=== PATIENT | male | born 1975 | race Caucasian/White ===

== ENCOUNTER 2017-08-24 08:15 | Day surgery (SDC) | payer BC, OTHER ==
[2017-08-24 09:19] LABS: PROTHROMBIN TIME 13.7 SEC (11.4-15.4)
[2017-08-24 09:20] LABS: PARTIAL THROMBOPLASTIN TIME 33.6 SEC (23.5-35.8)
--- NOTE | 2017-08-24 12:34 | RADIOLOGY REPORT (SQ) ---
EXAM DESCRIPTION: MYELOGRAM LUMBAR; CT LUMBAR SPINE WITH COMPLETED DATE/TIME: 08/24/2017 10:44 am; 08/24/2017 10:50 am REASON FOR STUDY: OTHER INVERTEBRAL DISC DEG LUMBAR REGION; OTHER INTERVETRAL DISC DEGENERATION LUMB AR REGION M51.36 OTHER INTERVERTEBRAL DISC DEGENERATION, LUMBAR REGION COMPARISON: None. FLUOROSCOPY TIME: 1 minute TECHNIQUE: Fluoroscopic guided lumbar myelogram. LIMITATIONS: None. PROCEDURE: See the technique paragraph TECHNIQUE: After written consent and assessment were obtained, the patient was brought into the fluo roscopy room and placed prone on the table. The patient's lower back was prepped in a sterile fashio n and an entry site was selected under live fluoroscopic guidance. The entry site was anesthetized wi th 7 mL of 1% lidocaine. The 22 gauge spinal needle was advanced through the skin and into the thecal sac at the left paracentral L2-3 level Contrast was injected into the thecal sac. Following the pro cedure the needle was removed and a sterile bandage was placed of the site. CONTRAST: 12 mL Isovue M 200. IMAGES ACQUIRED: Multiple prone oblique, semi-erect oblique, upright oblique, and lateral flexion and extension images of the lumbar spine to prone cross-table lumbar spine radiographs. After performing lumbar myelogram, axial images were acquired through the lumbar spine without intrav enous contrast. Images reviewed with lung, soft tissue and bone windows. Reconstructed coronal and sagittal MPR images reviewed. All images stored on PACS. All CT scanners at this facility use dose modulation, iterative reconstruction, and/or weight based d osing when appropriate to reduce radiation dose to as low as reasonably achievable (ALARA). [facility]: Dose Right [facility]: CareDose [facility]: Dose Right [facility]: Teradose 4D [facility]: [place] FINDINGS: At fluoroscopy, there is truncation of filling of the proximal left L5 nerve root as robbie red to the right. Grade 1 anterolisthesis of L5 over S1 is present, stable between flexion and exten catracho images. Old lower lumbar fusion with bilateral laminectomy and transpedicular screws with dorsa l fixation plates at L5-S1. Radiopaque disc spacer is present. SEGMENTATION: Normal. No transitional anatomy. ALIGNMENT: Grade 1 25% anterolisthesis of L5 over S1, stable between upright flexion/ extension image s and prone cross-table film, supine CT images VERTEBRAL BODIES: No fractures. No dislocation. No acute findings. HARDWARE: Post fusion at L5-S1 with bilateral transpedicular screws and dorsal fixation plates. No s crew fracture is identified. Disc space prosthesis at the L5-S1 level with adjacent vertebral body e ndplate sclerosis DISCS: L1-L2: No significant protrusions. No significant stenosis. L2-L3: No significant protrusions. No significant stenosis. L3-L4: No significant protrusions. No significant stenosis. L4-L5: Diffuse posterior disc bulging is present along with mild bilateral facet and ligament hypertr ophy. Mild bilateral foraminal narrowing without exiting L4 nerve root impingement L5-S1: Post fusion, without fixed grade 1 anterolisthesis of L5 over S1. There is ligamentum flavum calcification/ ossification and disc bulging at L5-S1, with mild flattening of the thecal sac at the takeoff of the left L5 nerve root from the lateral recess. There is decreased filling of the left pr oximal L5 nerve root as it exits the thecal sac as compared to the right. This is best shown on axia l image 72 and coronal image 23. There is moderate bilateral foraminal narrowing with some partial e ffacement of fat around the exiting L5 nerve roots bilaterally PEDICLES, TRANSVERSE PROCESSES: No fractures. No dislocation. No acute findings. FACETS, POSTERIOR ELEMENTS: No fractures. No dislocation. SOFT TISSUES: No significant or acute finding in adjacent soft tissues. OTHER: No other significant finding. IMPRESSION: Decreased filling of the left proximal L5 nerve root sleeve at the level of the takeoff from the thecal sac. This is related to mild local mass effect from facet hypertrophy and ligamentu m flavum ossification Intact dorsal hardware at L5-S1 with disc space prosthesis and old bilateral laminectomy COMMENT: Patient medication list reviewed: Yes- Quality ID# [id number]:Eligible professional attests to doc umenting in the medical record they obtained, updated, or reviewed the patient's current medications. TECHNICAL DOCUMENTATION: JOB ID: [id number] Quality ID # [id number]: Final reports with documentation of one or more dose reduction techniques (e.g., Au tomated exposure control, adjustment of the mA and/or kV according to patient size, use of iterative reconstruction technique) 2010 [employer]- All Rights Reserved
[2017-08-24 12:47] VITALS: BP 135/96
== END 2017-08-24 12:45 | disposition home or self-care (01) ==
LOC: RAD 08:15
PROVIDERS: ATTEND Orthopaedic Surgery
PROC: B01BYZZ Fluoroscopy of Spinal Cord using Other Contrast (ICD-10-PCS; principal; 2017-08-24)
DX: M51.36 Other intervertebral disc degeneration, lumbar region (principal); M54.5 Low back pain
CPT/HCPCS: 36415; 72132; 72265; 85610; 85730